=== PATIENT | female | born 1995 | race Hispanic/Latino ===

== ENCOUNTER 2020-11-26 22:39 | Outpatient (CLI) | payer MEDICAID ==
[2020-11-26 22:59] VITALS: BP 129/81
--- NOTE | 2020-11-27 00:41 | Ultrasound Report ---
ULTRASOUND BIOPHYSICAL PROFILE INDICATION: decreased movement. COMPARISON: None available. FINDINGS: breathing movement = 2 Gross body movement = 2 tone = 2 Qualitative amniotic fluid volume = 2 Total biophysical score = 8/8 Amniotic fluid index is 10.1 cm. Presentation is Cephalic. heart rate is 137 beats per minute. IMPRESSION: biophysical profile = 10/29 Amniotic fluid index is 10.1 cm, within normal limits. Signer Name: Armin Hughes MD Signed: 11/27/2020 12:36 AM Workstation Name: [id number]
== END 2020-11-27 00:35 | disposition home or self-care (01) ==
LOC: TRG 22:39 → APU 22:46 → TRG 11-27 00:35
PROVIDERS: ATTEND Obstetrics & Gynecology
DX: Z34.93 Encounter for supervision of normal pregnancy, unspecified, third trimester (principal); Z3A.37 37 weeks gestation of pregnancy
CPT/HCPCS: 59025; 76815; 76819

== ENCOUNTER 2020-12-11 05:41 | Inpatient (IN) | payer MEDICAID ==
--- NOTE | 2020-12-11 00:54 | History and Physical Report ---
History of Present Illness Date of examination: 12/05/20 History of present illness: Patient admitted for repeat section. Menstrual history Regularity: regular Menses every: 28 days Duration: 4-5 LMP: 03/12/2020 LMP reliability: definite LMP character: normal test type: urine test Date: 04/20/2020 BC at conception: none Planned ? no EDC Calculations LMP: 12/17/2020 Past History : 2 Term Births: 1 Premature Births: 0 Living Children: 1 Para: 1 Mult. Births: 0 Prev : 1 Prev. attempt? 0 Aborta: 0 Elect. Ab: 0 Spont. Ab: 0 Ectopics: 0 # 1 Delivery date: 05/21/2017 Weeks Gestation: 38 Delivery type: Hours of labor: >24 Delivery location: [facility] Infant Sex: Female weight: 7lbs 15oz Comments: IOL, d/t GHTN, preE Past Medical History: Negative Past Medical History Past Surgical History: [place] teeth removal Family History Summary: Father - Has Family History of Hypertension - Entered On: 04/20/2020 MGM - Has Family History of Hypertension - Entered On: 04/20/2020 PGM - Has Family History of Hypertension - Entered On: 04/20/2020 Father - Has Family History of Diabetes - Entered On: 04/20/2020 PGM - Has Family History of Diabetes - Entered On: 04/20/2020 MGM - Has Family History of Diabetes - Entered On: 04/20/2020 Social History: Patient is single Smoking History: Patient has never smoked. Past Medical History Surgery (Non-procurement clerk): [place] teeth removal Abnormal PAP: negative KARLA Exposure: negative Infertility: negative Uterine Anomaly: negative Uterine Surgery (not C/S): negative Other Gynecologic Problems: negative Social Hx: Patient is single Smoking History: Patient has never smoked. Infection History Hx of STD: none HIV Risk Eval: no Hepatitis B Risk Eval: low risk Personal hx. of genital herpes: no Rash, Viral, or Febrile illness since last LMP? no Varicella/Chicken Pox Status: Immunized TB Risk: no Genetic History Congenital Heart Defect: Mom: no Dad: no Irasema Disease: Mom: no Dad: no Thalassemia Mom: no Dad: no Neural Tube Defect Mom: no Dad: no Down's Syndrome Mom: no Dad: no Freeman-Sachs Mom: no Dad: no Sickle Cell Disease/Trait Mom: no Dad: no Hemophilia Mom: no Dad: no Muscular Dystrophy Mom: no Dad: no Cystic Fibrosis Mom: no Dad: no [place] Chorea Mom: no Dad: no Mental Retardation Mom: no Dad: no Fragile X Mom: no Dad: no Other Genetic/Chromosomal Disorder Mom: no Dad: no Child w/other defect Mom: no Dad: no Enviromental Exposures Enviromental Exposures Reviewed Xray Exposure: no Medication, drug, or alcohol use since LMP: no Chemical/Other Exposure: no Exposure to Cat Liter: no Hx of Parvovirus (Fifth Disease): no Occupational Exposure to Children: none Current Allergies (reviewed today): No known allergies Past History Past Medical History: other (See HPI) Past Surgical History: section, other (See HPI) LEARNING DEVELOPMENT SPECIALIST History: other (See HPI) Family/Genetic History: other (See HPI) Social history: full code, other (See HPI) - Obstetrical History Expected Date of Delivery: 12/17/20 Actual Gestation: 39 Week(s) 1 Day(s) : 2 Para: 1 Hx # Term Pregnancies: 1 Number of Pregnancies: 0 Spontaneous Abortions: 0 Induced : 0 Number of Living Children: 1 Medications and Allergies Allergies Allergy/AdvReac Type Severity Reaction Status Date / Time No Known Allergies Allergy Unverified 11/26/20 23:12 Active Meds: Active Medications Citric Acid/Sodium Citrate (Bicitra Oral Liqd 30ml) 30 ml PO ONCE ONE Stop: 12/11/20 07:01 Famotidine (Famotidine 20 Mg/2 Ml Inj) 20 mg IV ONCE ONE Stop: 12/11/20 07:01 Lactated Ringer's (Lactated Ringers) 1,000 mls @ 2,250 mls/hr IV PREOP JOSE Stop: 12/12/20 05:57 Oxytocin/Sodium Chloride (Pitocin/Ns 30 Unit/500ml) 30 units in 500 mls @ 0 m ls/hr IV TITR JOSE Cefazolin Sodium (Ancef/Sterile Water 2 Gm/20 Ml) 2 gm in 20 mls @ 80 mls/hr IV PREOP NR; Protocol Metoclopramide HCl (Metoclopramide 10 Mg/2 Ml Inj) 10 mg IV ONCE ONE Stop: 12/11/20 07:01 - Physical Exam Breasts: Positive: deferred Cardiovascular: Regular rate Lungs: Positive: Normal air movement Abdomen: Positive: normal appearance, soft Genitourinary (Female): Positive: normal external genitalia Uterus: Positive: enlarged Extremities: Positive: edema - Obstetrical FHR: auscultation normal Results Result Diagrams: 12/11/20 06:21 All other labs normal. Assessment and Plan - Patient Problems (1) Previous section complicating Current Visit: Yes Status: Acute Plan to address problem: Patient admitted for repeat section. Patient informed the risks of the surgery include bleeding possibly bleeding heavy enough to require blood transfu carina, infection possible damage to bowel bladder ureter. Patient understands that due to her previous surgery she is an increased risks of adjacent organ damage. Patient's questions answered. Patient understands and desires to proceed. (2) Screening and evaluation for female sterilization Current Visit: Yes Status: Acute Plan to address problem: Patient initially desired permanent sterilization. . She understands the risks of the surgery include bleeding infection possible damage to bowel bladder or ureters. She understands that this surgery would make her permanently sterile. She also understands the approximate 1% failure rate. The patient understands all the above and now I decided against tubal ligation
[~2020-12-11 05:41] MED LIST: LACTATED RINGERS 1,000 ML IV SCH
[2020-12-11 06:39] LABS: Basophils % (Auto) 0.2 % (0.0-1.8); Eosinophils # (Auto) 0.1 K/mm3 (0.0-0.4); Eosinophils % (Auto) 0.6 % (0.0-4.3); Hematocrit 32.7 % (30.3-42.9); Hemoglobin 11.1 gm/dl (10.1-14.3); Lymphocytes # (Auto) 2.5 K/mm3 (1.2-5.4); Lymphocytes % (Auto) 16.9 % (13.4-35.0); Mean Corpuscular HGB Conc 34 % (30-34); Mean Corpuscular Volume 85 fl (79-97); Monocytes # (Auto) 0.8 K/mm3 (0.0-0.8); Monocytes % (Auto) 5.2 % (0.0-7.3); Platelet Count 261 K/mm3 (140-440); Red Blood Count 3.83 M/mm3 (3.65-5.03); Red Cell Distribution Width 14.4 % (13.2-15.2)
--- NOTE | 2020-12-11 06:50 | Anesthesia Day of Surgery ---
Anesthesia Day of Surgery - Day of Surgery Patient Examined: Yes Patient H&P Reviewed: Yes Patient is NPO: Yes Beta Blockers: No Cardiac Clearance: No Pulmonary Clearance: No Ronald's Test: Negative
--- NOTE | 2020-12-11 06:51 | Anesthesia Consultation ---
Anesthesia Consult and Med Hx Date of service: 12/11/20 - Airway Anesthetic Teeth Evaluation: Poor ROM Head & Neck: Adequate Mental/Hyoid Distance: Adequate Mallampati Class: Class II Intubation Access Assessment: Probably Good - Pulmonary Exam CTA: Yes - Cardiac Exam Cardiac Exam: RRR - Pre-Operative Health Status ASA Pre-Surgery Classification: ASA2 Proposed Anesthetic Plan: Spinal - Pulmonary Hx Smoking: No Hx Asthma: No Hx Respiratory Symptoms: No SOB: No COPD: No Home Oxygen Therapy: No Hx Pneumonia: No Hx Sleep Apnea: No - Cardiovascular System Hx Hypertension: No Hx Coronary Artery Disease: No Hx Heart Attack/AMI: No Hx Angina: No Hx Percutaneous Transluminal Coronary Angioplasty (PTCA): No Hx Cardia Arrhythmia: No Hx Pacemaker: No Hx Internal Defibrillator: No Hx Valvular Heart Disease: No Hx Heart Murmur: No Hx Peripheral Vascular Disease: No - Central Nervous System Hx Neuromuscular Disorder: No Hx Seizures: No CVA: No Hx Back Pain: Yes Hx Psychiatric Problems: No - Gastrointestinal Hx Ulcer: No Hx Gastroesophageal Reflux Disease: Yes - Endocrine Hx Renal Disease: No Hx End Stage Renal Disease: No Hx Cirrhosis: No Hx Liver Disease: No Hx Insulin Dependent Diabetes: No Hx Non-Insulin Dependent Diabetes: No Hx Thyroid Disease: No Hx Hypothyroidism: No Hx Hyperthyroidism: No - Hematic Hx Anemia: No Hx Sickle Cell Disease: No - Other Systems Hx Alcohol Use: No Hx Substance Use: No Hx Cancer: No Hx Obesity: Yes
[2020-12-11] MEDS ORDERED: ceFAZolin/Water 2 GM/20 ML 2 GM/20 ML SYRINGE IV NR (07:00)
[2020-12-11] MEDS ORDERED: ONDANSETRON 4 MG/2 ML INJ ONE ×2 (07:23)
[2020-12-11] MEDS ORDERED: BICITRA ORAL LIQD 30ML PO ONE (07:30)
[2020-12-11] MEDS ORDERED: METOCLOPRAMIDE 10 MG/2 ML INJ IV ONE (07:30)
[2020-12-11] MEDS ORDERED: FAMOTIDINE 20 MG/2 ML INJ IV ONE (07:30)
[2020-12-11] MEDS ORDERED: SODIUM CHLORIDE 0.9% IRR 1,500 ML BOTTLE IR ONE (08:05)
[2020-12-11] MEDS ORDERED: WATER FOR IRRIG STERILE 1,500 ML BOTTLE IR ONE (08:05)
[2020-12-11] MEDS ORDERED: BUPIVACAINE/PF (0.25%) 2.5 MG/ML 30 ML VIAL INFILTRATI ONE ×2 (08:19)
[2020-12-11] MEDS ORDERED: dexAMETHasone 20 MG/5 ML VIAL ONE (08:19)
[2020-12-11] MEDS ORDERED: KETOROLAC 30 MG/1 ML INJ ONE (08:19)
[2020-12-11] MEDS ORDERED: OXYTOCIN DRIP 30 UNITS/500 ML BAG IV SCH ×2 (08:30→12:00)
--- NOTE | 2020-12-11 09:23 | Operative Report ---
Operative Report Operative Report: Date of procedure: December 11, 2020 Pre-operative diagnosis: Intrauterine at 39 weeks with previous section Post-operative diagnosis: Same Procedure name(s): Repeat low transverse section Surgeon: Felice James MD Carbon Coater Machine Operator: EMILIA Anesthesia: Spinal EBL: QBL = 571cc Complications: None Findings: Patient with a gravid uterus with adhesions between the bladder and the anterior uterine wall. Normal tubes and ovaries bilaterally. Female weight 8 pounds 1 ounce Apgars 8 at 1 minute and 9 at 5 minutes Specimen(s): None Procedure: The patient was brought to the operating room. A spinal was placed without any complications. She was then placed in left lateral tilt. Prepped and draped in the usual sterile manner. After testing for adequate anesthesia level, a Pfannenstiel incision was made through her previous scar. This incision was taken down to the fascia. The fascia was then nicked in the midline. This incision was extended out laterally with [place] scissors. The fascia was then sharply and bluntly from the underlying rectus muscles. The rectus muscles were bluntly and sharply . The peritoneum was then entered with the naval aircrewman operator's fingers. This incision was spread vertically with care not to damage the bladder below. . The Alexsander self- retaining tractor was then placed without any difficulty. The bladder flap was then formed sharply and bluntly with Metzenbaum scissors. A transverse incision was made in lower uterine segment. This incision was extended laterally with the operators fingers. The amniotic sac was then entered bluntly with the naval aircrewman operator's fingers. The infant was delivered from the vertex position. Bulb suction on the mother's abdomen. Cord was double clamped and cut. The infant was then passed to the nursery personnel who were in attendance. The above scores were given by the nursery personnel. The placenta was then bluntly removed. The uterus was then externalized and wiped clean the remaining products. The uterine incision was closed in layers. The first incision was closed in a locking manner using 0 Vicryl. This was followed by imbricating stitch also with 0 Vicryl. This closure was hemostatic. The bladder flap was copiously irrigated and found to be hemostatic. The pelvis was copiously irrigated and found to be hemostatic. The uterus was then placed back to the patient's abdomen. The retractors were removed. The rectus muscles were in spected and found to be hemostatic. The fascia was then closed in a running manner using 0 Vicryl. This incision was hemostatic irrigation Bovie. The skin was reapproximated with 4-0 Vicryl subcuticularly. The patient tolerated procedure well. Her urine was clear. The was admitted to the well baby nursery. The patient was accompanied to recovery room in good condition. Instrument count correct x3.
--- NOTE | 2020-12-11 09:29 | Progress Note ---
Spinal Anesthesia Block - Spinal Anesthesia Block Start Time: 07:49 Stop Time: 07:55 Performed by:: GARRETT SILVEIRA Procedure: Patient IDed, H&P reviewed, all questions and concerns were answered, and consent was signed. Timeout was performed at bedside. Patient in sitting position. Sterile prep and drape was performed. [3] ml of 1% lidocaine skin wheal at L[3]- L [4]. Needle introducer advanced. 25 gauge spinal needle advanced. Clear, free flowing CSF. negative blood, negative paresthesia. Spinal dose given. All needles removed. Patient tolerated procedure.
--- NOTE | 2020-12-11 09:30 | Progress Note ---
Regional Anesthesia Block - Regional Anesthesia Block Start Time: :17 Stop Time: : Performed By:: GARRETT SILVEIRA Procedure: Patient consented for TAP block for post surgical pain management. Patient identified, monitors placed, and time out performed. TAP identified bilaterally via ultrasound. Skin prepped bilaterally with [chlorhexidine] and [22g stimuplex] needle advanced to the TAP. [Marcaine 0.25% 35ml] injected under ultrasound guidance on the [left] side. [Marcaine 0.25% 35ml] injected under ultrasound guidance on the [right] side. Negative aspiration every 5mL, No change in heart rate or rhythm. Patient tolerated the procedure well. No apparent complications seen.
[2020-12-11] MEDS ORDERED: PRENATAL VIT27-FE FUMARATE-FOLIC ACID VIT TAB PO SCH (12:00)
[2020-12-11] MEDS ORDERED: LANOLIN/ZINC/DIMETHICONE (LANSINOH) 7 GM TP PRN (12:00)
[2020-12-11] MEDS ORDERED: WITCH HAZEL/ GLYCERIN PAD TP PRN (12:00)
[2020-12-11] MEDS ORDERED: NALOXONE 0.4 MG/1 ML INJ IV PRN (12:00)
[2020-12-11] MEDS ORDERED: SIMETHICONE 80 MG CHEW TAB PO PRN (12:00)
[2020-12-11] MEDS ORDERED: ONDANSETRON 4 MG/2 ML INJ IV PRN (12:00)
[2020-12-11] MEDS ORDERED: FERROUS SULFATE 325 MG TAB PO SCH (12:00)
[2020-12-11] MEDS ORDERED: HYDROcodone/ACETAMINOPHEN 5-325 MG TAB PO PRN (12:00)
[2020-12-11] MEDS: MORPHINE 2 MG/1 ML INJ IV PRN ×2 (13:21→20:44)
[2020-12-11] MEDS: ceFAZolin/NS 1 GM/50 ML 1 GM/50 ML BAG IV SCH (15:45)
[2020-12-11] MEDS: D5W/LACTATED RINGERS 1,000 ML IV SCH ×2 (16:00→23:51)
[2020-12-11] MEDS: KETOROLAC 30 MG/1 ML INJ IV SCH ×2 (16:00→23:51)
--- NOTE | 2020-12-11 17:22 | Post Anesthesia Evaluation ---
- Post Anesthesia Evaluation Patient Participated: Yes Airway Patent: Yes Stable Respiratory Function: Yes Nausea/Vomiting: No Temp > 96.8F: Yes Pain Manageable: Yes Adequeate Hydration: Yes Anesthesia Complications: No Block Receding Appropriately: Yes Patient on Ventilator: No
[2020-12-11] MEDS ORDERED: MAGNESIUM HYDROXIDE (MOM) ORAL LIQD UDC PO PRN (22:00)
[2020-12-11] MEDS ORDERED: SENNOSIDES 8.6 MG TAB PO PRN (22:00)
[2020-12-12] MEDS: ceFAZolin/NS 1 GM/50 ML 1 GM/50 ML BAG IV SCH (00:01)
[2020-12-12 00:58] LABS: Hematocrit 28.5 % (30.3-42.9); Hemoglobin 9.6 gm/dl (10.1-14.3)
[2020-12-12] MEDS: MORPHINE 2 MG/1 ML INJ IV PRN (03:27)
--- NOTE | 2020-12-12 06:40 | Progress Note ---
<NATALEE CASTLE - Last Filed: 12/12/20 06:45> Assessment and Plan - Patient Problems (1) delivery delivered Onset Date: ~12/11/20 Current Visit: Yes Status: Acute Plan to address problem: Pt is Covid+ Pt A&O caring for NB No voiced c/o. Denies loss of taste or smell. VSS FF below umb Lochia small Incision D&I H&H 12/19 drop r/t blood loss from surgery Pt w/o s/sx of anemia Doing well s/p R c/s with salpingectomy. P: continue pathway Advance diet and activity as tolerated Subjective - Subjective Date of service: 12/12/20 (no c/o voiced) Principal diagnosis: Day # 1 s/p Repeat c/s with salpingectomy Patient reports: appetite normal, voiding normally, pain well controlled, ambulating normally [place]: doing well Objective - Vital Signs Latest vital signs: Vital Signs Temp Pulse Resp BP BP Pulse Ox Pulse Ox 12/12/20 03:59 98.3 F 67 18 136/82 100 12/12/20 03:27 18 12/12/20 00:07 98.2 F 69 18 123/70 100 12/11/20 23:51 18 12/11/20 20:44 18 12/11/20 20:21 100 12/11/20 20:15 97.9 F 74 18 119/81 100 12/11/20 16:00 97.9 F 69 20 124/76 97 12/11/20 10:35 97.5 F L 60 20 135/79 100 100 12/11/20 10:15 59 L 16 114/58 100 12/11/20 10:00 97.8 F 61 16 122/78 100 12/11/20 09:45 58 L 14 113/67 100 12/11/20 09:30 59 L 14 114/67 100 12/11/20 09:15 62 15 115/53 100 12/11/20 09:13 97.9 F 59 L 15 113/46 12/11/20 07:31 93 H 100 12/11/20 07:26 91 H 100 12/11/20 07:23 98.4 F 104 H 16 112/68 100 12/11/20 07:21 77 99 12/11/20 07:16 96 H 100 12/11/20 07:11 101 H 100 12/11/20 07:06 100 H 100 12/11/20 07:01 98 H 100 12/11/20 06:56 101 H 100 12/11/20 06:51 102 H 100 12/11/20 06:46 100 H 100 12/11/20 06:41 92 H 100 12/11/20 06:36 101 H 100 Intake and Output 12/11/20 12/11/20 12/12/20 14:59 22:59 06:59 Intake Total 1150 410 981.25 Output Total 160 400 Balance 990 10 981.25 Intake: IV 1150 50 981.25 ANCEF/NS 1 GM/50 ML 1 gm 50 In 50 ml @ 100 mls/hr IV Q8H JOSE Rx#:[id number] D5lr 1,000 ml @ 125 mls/ 981.25 hr IV DIRECT JOSE Rx#: [id number] Oral 360 Output: Urine 160 400 Indwelling Catheter 400 Other: Total, Intake Amount 360 Total, Output Amount 400 Estimated Blood Loss 571 - Exam Breasts: Present: deferred Cardiovascular: Present: Regular rate Lungs: Present: Normal air movement Abdomen: Present: normal appearance, soft Uterus: Present: normal Extremities: Present: normal Deep Tendon Reflex Grade: Normal +2 Incision: Present: normal, dry, intact - Labs Labs: Abnormal lab results 12/11/20 12/11/20 12/12/20 Range/Units 06:21 Unknown 00:44 WBC 15.0 H (4.5-11.0) K/mm3 Hgb 9.6 L (10.1-14.3) gm/dl Hct 28.5 L (30.3-42.9) % Seg Neutrophils % 77.1 H (40.0-70.0) % Seg Neutrophils # 11.6 H (1.8-7.7) K/mm3 Coronavirus (PCR) Positive A (Negative) <KYREE LIVE - Last Filed: 12/13/20 11:28> Assessment and Plan - Patient Problems (1) Previous section complicating Current Visit: Yes Status: Acute (2) Screening and evaluation for female sterilization Current Visit: Yes Status: Acute Subjective - Subjective Principal diagnosis: Day # 1 s/p Repeat c/s Objective - Vital Signs Latest vital signs: Vital Signs Temp Pulse Resp BP Pulse Ox Pulse Ox 12/13/20 08:16 100 12/13/20 05:53 100 12/13/20 04:53 100 12/13/20 00:21 97.9 F 65 18 109/61 97 12/13/20 00:00 18 97 12/12/20 23:02 99 12/12/20 23:00 18 12/12/20 20:00 98 Intake and Output 12/12/20 12/13/20 12/13/20 22:59 06:59 14:59 Intake Total 1000 Balance 1000 Intake: Oral 1000 Other: Total, Intake Amount 1000 # Voids Void 5 - Addendum Date: 12/13/20 Note: Salpingectomy was not done - Discharge Diagnoses (1) Previous section complicating Status: Acute (2) Screening and evaluation for female sterilization Status: Acute
[2020-12-12] MEDS: HYDROcodone/ACETAMINOPHEN 5-325 MG TAB PO PRN ×3 (07:27→23:00)
[2020-12-12] MEDS ORDERED: IBUPROFEN 600 MG TAB PO PRN (12:00)
[2020-12-12] MEDS: IBUPROFEN 800 MG TAB PO PRN ×2 (12:46→18:36)
[2020-12-13] MEDS: IBUPROFEN 800 MG TAB PO PRN (04:53)
--- NOTE | 2020-12-13 08:18 | Discharge Summary ---
Providers - Providers Date of Admission: 12/11/20 05:41 Date of discharge: 12/13/20 (Pt desires discharge home.) Attending physician: MELI SANCHEZ MD 12/11/20 11:17 Consult to Mailing Machine Assistant [CONS] Routine Reason For Exam: Primary care physician: MELI SANCHEZ MD Hospitalization Reason for admission: section Delivery: Procedure: repeat low transverse Episiotomy: none Laceration: none Incision: normal, dry, intact Other procedures: none complications: none [place] baby: female Hospital course: S: Pt doing well. Ambulating, voiding, and passing flatus okay. BC: Mirena. O: VSS. Adequate I&O's. H/H 9.6/28.5, asymptomatic anemia from delivery. Incision open to air, intact, no s/sx of infection, no drainage noted. A: 25 y.o. s/p rpt . POD #2, doing well , in good condition for discharge home. P: Discharge home with instructions. Patient to make incision check in office in 1 week. visit in the office in 4 weeks. Condition at discharge: Good Disposition: 01 HOME / SELF CARE / HOMELESS Plan - Discharge Medications Prescriptions: Ferrous Sulfate [Feosol 325 MG tab] 325 mg PO BID #60 tablet Ibuprofen [Motrin] 800 mg PO TID PRN #30 tablet PRN Reason: Pain oxyCODONE /ACETAMINOPHEN [Percocet 5/325 mg] 1 - 2 tab PO Q6HR PRN #20 tablet PRN Reason: Pain - Provider Discharge Summary Activity: routine, no sex for 6 weeks, no heavy lifting 4 weeks, no strenuous exercise Diet: routine Instructions: routine Additional instructions: [] Smoking cessation referral if applicable(refer to patient education folder for contact #) [] Refer to [facility]'s [facility] Booklet Call your doctor immediately for: * Fever > 100.5 * Heavy vaginal bleeding ( >1 pad per hour) * Severe persistent headache * Shortness of breath * Reddened, hot, painful area to leg or breast * Drainage or odor from incision. * Keep incision clean and dry at all times and follow doctor's instructions regarding bathing/showering Congratulations on your baby girl! Thank you for allowing us to take care of you. Please schedule your incision check in the office in 1 week. Should you have any questions or concerns after discharge, please do not hesitate to call the office at [phone]. - Follow up plan Follow up: MELI SANCHEZ MD [Primary Care Provider] - 7 Days
[2020-12-13 12:05] VITALS: BP 110/58
== END 2020-12-13 11:20 | disposition home or self-care (01) | DRG 765 ==
LOC: APU 05:41 → OB 10:40
PROVIDERS: ADMIT Student in an Organized Health Care Education/Training Program; ATTEND Student in an Organized Health Care Education/Training Program
PROC: 10D00Z1 Extraction of Products of Conception, Low, Open Approach (ICD-10-PCS; principal; 2020-12-11)
PROC: 3E0T3BZ Introduction of Anesthetic Agent into Peripheral Nerves and Plexi, Percutaneous Approach (ICD-10-PCS; 2020-12-11)
DX: O98.52 Other viral diseases complicating childbirth (principal); U07.1 COVID-19; O34.211 Maternal care for low transverse scar from previous cesarean delivery; Z3A.39 39 weeks gestation of pregnancy; Z37.0 Single live birth; O90.81 Anemia of the puerperium
CPT/HCPCS: 36415; 85014; 85018; 85025; 86850; 86900; 86901; G0378; J0690; J1100; J1885; J2270; J2405; J2765; J3490; J7120; J7121; U0003